=== PATIENT | male | born 2000 | race American Indian/Alaskan Native ===

== ENCOUNTER 2018-08-09 18:02 | Emergency (ER) | payer BC, MEDICAID ==
[2018-08-09 18:02] VITALS: BMI 18.3
[2018-08-09 18:10] VITALS: RESP 18; O2SAT 100
[2018-08-09] MEDS ORDERED: Sodium Chloride 0.9% 1,000 ML IV ONE (18:39)
[2018-08-09] MEDS ORDERED: Sodium Chloride 0.9% 1,000 ML ONE (19:06)
[2018-08-09 19:20] LABS: BASO % 0.3 % (0.0-2.0); HEMOGLOBIN 15.7 g/dL (12.0-18.0); LYMPH # 0.3 K/uL (1.0-4.3); LYMPH % 3.9 % (20.0-40.0); MEAN CELL VOLUME 90.3 fL (80.0-94.0); MEAN CORPUSCULAR HEMOGLOBIN 28.9 pg (27.0-31.0); MEAN PLATELET VOLUME 8.9 fL (7.2-11.7); MONO # 0.5 K/uL (0.0-0.8); MONO % 6.9 % (0.0-10.0); NEUT # 6.2 K/uL (1.8-7.0); NEUT % 88.9 % (50.0-75.0); PLATELET COUNT 244 K/uL (130-400); RBC 5.46 Mil/uL (4.40-5.90); RED CELL DISTRIBUTION WIDTH 12.3 % (11.5-14.5)
[2018-08-09 19:29] LABS: SQUAMOUS EPITHIAL 1 /hpf (0-5); URINE BILIRUBIN NEGATIVE (NEGATIVE); URINE BLOOD NEGATIVE (NEGATIVE); URINE CLARITY Clear (Clear); URINE COLOR Yellow (YELLOW); URINE GLUCOSE (UA) NORMAL (Normal); URINE LEUKOCYTE ESTERASE TRACE Leu/uL (Negative); URINE PROTEIN 1+ mg/dL (NEGATIVE)
[2018-08-09 19:36] LABS: ALB/GLOB RATIO 1.5 (1.0-2.1); ALBUMIN 5.1 g/dL (3.5-5.0); ALT/SGPT 25 U/L (21-72); AST/SGOT 40 U/L (17-59); BLOOD UREA NITROGEN 12 mg/dL (9-20); GFR NON-AFRICAN AMERICAN > 60; LIPASE 47 U/L (23-300)
[2018-08-09 20:02] LABS: BANDS 1 % (0-2); LYMPHOCYTE 9 % (20-40); MICROCYTOSIS SLIGHT; MONOCYTE 7 % (0-10); NEUTROPHIL 83 % (50-75); PLATELET ESTIMATE NORMAL (NORMAL); TOTAL CELLS COUNTED 100
[2018-08-09 20:03] LABS: LARGE PLATELETS PRESENT; SPHEROCYTES SLIGHT
--- NOTE | 2018-08-09 20:14 | C.PDOC ---
History Of Present Illness 17 y/o presents to the ED complaining of 2 days of upper abdominal pain associated with vomiting and diarrhea. No fevers, chills, or bloody stool. No recent travel. No known sick contacts. Pain is localized over the epigastrium. Time Seen by Provider: 08/09/18 18:33 Chief Complaint (Nursing): Abdominal Pain History Per: Patient History/Exam Limitations: no limitations Onset/Duration Of Symptoms: Days (x 2) Current Symptoms Are (Timing): Still Present Past Medical History Reviewed: Historical Data, Nursing Documentation, Vital Signs Vital Signs: Last Vital Signs Temp 98.3 F 08/09/18 18:06 Pulse 96 H 08/09/18 18:06 Resp 18 08/09/18 18:06 BP 129/69 08/09/18 18:06 Pulse Ox 100 08/09/18 18:06 - Medical History PMH: Asthma Surgical History: No Surg Hx Family History: States: Unknown Family Hx - Social History Hx Tobacco Use: No Hx Alcohol Use: No Hx Substance Use: No - Immunization History Hx Tetanus Toxoid Vaccination: Yes Hx Influenza Vaccination: Yes Hx Pneumococcal Vaccination: No Review Of Systems Except As Marked, All Systems Reviewed And Found Negative. Constitutional: Negative for: Fever, Chills Respiratory: Negative for: Shortness of Breath Gastrointestinal: Positive for: Vomiting, Abdominal Pain, Diarrhea. Negative for: Hematochezia, Hematemesis Genitourinary: Negative for: Dysuria, Hematuria Physical Exam - Physical Exam Appears: Non-toxic, No Acute Distress Skin: Normal Color, Warm Head: Atraumatic, Normacephalic Eye(s): bilateral: Normal Inspection, PERRL, EOMI Oral Mucosa: Moist Neck: Normal ROM Chest: Symmetrical Cardiovascular: Rhythm Regular, No Murmur Respiratory: Normal Breath Sounds, No Accessory Muscle Use Gastrointestinal/Abdominal: Soft, Tenderness (to the epigastrium), No Guarding, No Rebound Back: No CVA Tenderness Extremity: Bilateral: Atraumatic, Normal Color And Temperature Neurological/Psych: Oriented x3, Normal Speech ED Course And Treatment - Laboratory Results Result Diagrams: 08/09/18 19:16 08/09/18 19:16 Lab Results: Total Bilirubin 1.0 mg/dL (0.2-1.3) 08/09/18 19:16 AST 40 U/L (17-59) 08/09/18 19:16 ALT 25 U/L (21-72) 08/09/18 19:16 Alkaline Phosphatase 113 U/L (38-126) 08/09/18 19:16 Total Protein 8.5 g/dL (6.3-8.3) H 08/09/18 19:16 Albumin 5.1 g/dL (3.5-5.0) H 08/09/18 19:16 Globulin 3.4 gm/dL (2.2-3.9) 08/09/18 19:16 Albumin/Globulin Ratio 1.5 (1.0-2.1) 08/09/18 19:16 Lipase 47 U/L (23-300) 08/09/18 19:16 Urine Color Yellow (YELLOW) 08/09/18 19:16 Urine Clarity Clear (Clear) 08/09/18 19:16 Urine pH 6.0 (5.0-8.0) 08/09/18 19:16 Ur Specific [place] 1.033 (1.003-1.030) H 08/09/18 19:16 Urine Protein 1+ mg/dL (NEGATIVE) H 08/09/18 19:16 Urine Glucose (UA) Normal mg/dL (Normal) 08/09/18 19:16 Urine Ketones Negative mg/dL (NEGATIVE) 08/09/18 19:16 Urine Blood Negative (NEGATIVE) 08/09/18 19:16 Urine Nitrate Negative (NEGATIVE) 08/09/18 19:16 Urine Bilirubin Negative (NEGATIVE) 08/09/18 19:16 Urine Urobilinogen 4.0 mg/dL (0.2-1.0) 08/09/18 19:16 Ur Leukocyte Esterase Trace Marie/uL (Negative) 08/09/18 19:16 Urine WBC (Auto) 8 /hpf (0-5) H 08/09/18 19:16 Urine RBC (Auto) 3 /hpf (0-3) 08/09/18 19:16 Ur Squamous Epith Cells 1 /hpf (0-5) 08/09/18 19:16 O2 Sat by Pulse Oximetry: 100 (RA) Pulse Ox Interpretation: Normal Medical Decision Making Medical Decision Making: Impression: Abdominal Pain Plan: --CMP, CBC, lipase --UA --Obstructive series x-ray --IV fluids --30 mg IV Toradol --20 mg IV Pepcid --4 mg IV Zofran 2134 - patient states improvement. reports he has no symptoms at present, no dizziness, weakness, or abdominal pain. Resting comfortably, will discharge home to follow up with pmd within 2 days Patient tolerated meal, feels better, no longer with symptoms at this time, no weakness or abdominal pain at this time. Disposition Counseled Patient/Family Regarding: Studies Performed, Diagnosis, Need For Followup, Rx Given - Disposition Referrals: [facility] [Outside] Disposition: HOME/ ROUTINE Disposition Time: 21:35 Condition: STABLE Additional Instructions: follow up with your doctor within 2 days call to make an appointment take medication as needed return to ER if symptoms worsens or progress Prescriptions: Famotidine [Pepcid] 20 mg PO BID #20 tab Ondansetron ODT [Zofran ODT] 4 mg PO TID PRN #12 odt PRN Reason: Nausea/Vomiting Instructions: Acute Abdomen (Belly Pain), Adult (DC) Forms: [facility] ([place]), General Discharge Instructions - Clinical Impression Clinical Impression: Abdominal pain - Scribe Statement The provider has reviewed the documentation as recorded by the Mayo Carvajal Provider Attestation: All medical record entries made by the Mayo were at my direction and personally dictated by me. I have reviewed the chart and agree that the record accurately reflects my personal performance of the history, physical exam, medical decision making, and the department course for this patient. I have also personally directed, reviewed, and agree with the discharge instructions and di sposition.
[2018-08-09] MEDS ORDERED: Alum-Mag Hydrox-Simethicone Susp (30 mL) PO STA (21:03)
[2018-08-09] MEDS ORDERED: Alum-Mag Hydrox-Simethicone Susp (30 mL) ONE (21:11)
[2018-08-09 21:54] VITALS: BP 108/64; PULSE 74; TEMP 98.8
--- NOTE | 2018-08-10 09:00 | RAD ---
Date of service: 08/09/2018 PROCEDURE: Radiographs of the chest and abdomen (obstructive series) HISTORY: abd pain COMPARISON: No prior. TECHNIQUE: AP radiograph of the chest, with upright and supine radiographs of the abdomen. FINDINGS: CHEST: Lungs: Clear. Cardiovascular: Normal size heart. No pulmonary vascular congestion. No aortic atherosclerotic calcification present Pleura: No pleural fluid. No pneumothorax. Other findings: None. ABDOMEN AND PELVIS: Bowel: There is a paucity of bowel gas appreciable in the abdomen which is a nonspecific pattern with bowel obstruction not clearly demonstrated but not excluded either. Clinically correlate further. No abnormal intra-abdominal or pelvic calcifications. Limited amount of gas seen in what appears to be proximal large bowel the right lower quadrant. Fluid and air identified in the gastric viscus at the left upper quadrant. Free air: None. Bones: Unremarkable. Other findings: None. IMPRESSION: Nonspecific bowel gas pattern appreciable clinically correlate further. No abnormal intra-abdominal calcifications. No definite free intra peritoneal gas collection identified. Unremarkable chest radiograph. PA review assigned.
== END 2018-08-09 22:12 | disposition home or self-care (01) ==
LOC: C.ER 18:02
DX: R10.13 Epigastric pain (principal)
CPT/HCPCS: 74022; 80053; 81001; 83690; 85025; 96374; 96375; 99284; J1885; J2405; J7030